=== PATIENT | female | born 1950 | race Two or more races ===

== ENCOUNTER 2018-04-25 10:54 | Inpatient (IN) | payer OTHER ==
[~2018-04-25] VITALS: Ht 152.4 cm; Wt 64.0 kg
[2018-04-25] MEDS ORDERED: PANTOTHENIC AC500 MG (11:08)
[2018-04-25] MEDS ORDERED: METFORMIN HCL500 M2 (11:08)
[2018-04-25] MEDS ORDERED: GRALISE300 MG (11:08)
[2018-04-25] MEDS ORDERED: MILLIPRED5 MG (11:09)
[2018-04-25] MEDS ORDERED: NAMENDA10 MG (11:10)
[2018-04-25] MEDS ORDERED: SERTRALINE HCL25 MG (11:10)
[2018-04-25] MEDS ORDERED: ATORVASTATIN CA10 MG (11:10)
[2018-04-25] MEDS ORDERED: PROBIOTIC1 EAC2 (11:11)
[2018-04-27] MEDS ORDERED: OXYC1TAB9 PO (17:01)
== END 2018-04-27 17:28 | disposition home or self-care (01) | DRG 494 ==
LOC: ER 10:54 → SEC-K 22:30 → O/R 04-26 11:39 → SURG 04-26 20:49
PROC: 0PSD04Z Reposition Left Humeral Head with Internal Fixation Device, Open Approach (ICD-10-PCS; principal; 2018-04-25)
DX: S42.255A Nondisplaced fracture of greater tuberosity of left humerus, initial encounter for closed fracture (principal); S42.295A Other nondisplaced fracture of upper end of left humerus, initial encounter for closed fracture; E11.9 Type 2 diabetes mellitus without complications; W18.39XA Other fall on same level, initial encounter; Y93.89 Activity, other specified; Y92.89 Other specified places as the place of occurrence of the external cause; Y99.8 Other external cause status

== ENCOUNTER 2018-04-28 00:44 | Inpatient (IN) | payer OTHER ==
[~2018-04-28] VITALS: Wt 5.0 kg
[~2018-04-28 00:44] MED LIST: ATORVASTATIN CA10 MG; GRALISE300 MG; METFORMIN HCL500 M2; MILLIPRED5 MG; NAMENDA10 MG; OXYC1TAB9 PO; PANTOTHENIC AC500 MG; PROBIOTIC1 EAC2; SERTRALINE HCL25 MG
[2018-08-29] MEDS ORDERED: XOPENEX0.63 MG/3 IH (15:55)
[2018-08-29] MEDS ORDERED: [UNRECOGNIZED DRUG - CODE] IV (15:55)
[2018-08-29] MEDS ORDERED: TYGACIL50 MG IV (15:55)
[2018-08-29] MEDS ORDERED: LOVENOX30 MG/0.3 SUBCUTANEO (15:56)
== END 2018-08-29 21:15 | disposition designated cancer center or children's hospital (05) | DRG 3 ==
LOC: ER 00:44 → ICU-2 13:18 → ICU 13:18
PROC: 5A1955Z Respiratory Ventilation, Greater than 96 Consecutive Hours (ICD-10-PCS; principal; 2018-04-28)
PROC: 0BH17EZ Insertion of Endotracheal Airway into Trachea, Via Natural or Artificial Opening (ICD-10-PCS; 2018-04-28)
PROC: 3E0F7GC Introduction of Other Therapeutic Substance into Respiratory Tract, Via Natural or Artificial Opening (ICD-10-PCS; 2018-04-28)
PROC: 4A033R1 Measurement of Arterial Saturation, Peripheral, Percutaneous Approach (ICD-10-PCS; 2018-04-28)
PROC: B246ZZZ Ultrasonography of Right and Left Heart (ICD-10-PCS; 2018-04-28)
PROC: 02HV33Z Insertion of Infusion Device into Superior Vena Cava, Percutaneous Approach (ICD-10-PCS; 2018-05-02)
PROC: BW41ZZZ Ultrasonography of Abdomen and Pelvis (ICD-10-PCS; 2018-05-13)
PROC: BW25ZZZ Computerized Tomography (CT Scan) of Chest, Abdomen and Pelvis (ICD-10-PCS; 2018-05-15)
PROC: 30233N1 Transfusion of Nonautologous Red Blood Cells into Peripheral Vein, Percutaneous Approach (ICD-10-PCS; 2018-05-23)
PROC: 0B110F4 Bypass Trachea to Cutaneous with Tracheostomy Device, Open Approach (ICD-10-PCS; 2018-06-04)
PROC: BW25Y0Z Computerized Tomography (CT Scan) of Chest, Abdomen and Pelvis using Other Contrast, Unenhanced and Enhanced (ICD-10-PCS; 2018-06-14)
PROC: BW28ZZZ Computerized Tomography (CT Scan) of Head (ICD-10-PCS; 2018-06-25)
PROC: 0W9B00Z Drainage of Left Pleural Cavity with Drainage Device, Open Approach (ICD-10-PCS; 2018-06-27)
PROC: BB24ZZZ Computerized Tomography (CT Scan) of Bilateral Lungs (ICD-10-PCS; 2018-07-02)
PROC: 0DH63UZ Insertion of Feeding Device into Stomach, Percutaneous Approach (ICD-10-PCS; 2018-07-08)
PROC: 0JB70ZZ Excision of Back Subcutaneous Tissue and Fascia, Open Approach (ICD-10-PCS; 2018-07-10)
PROC: 0JB70ZZ Excision of Back Subcutaneous Tissue and Fascia, Open Approach (ICD-10-PCS; 2018-07-15)
PROC: BB24ZZZ Computerized Tomography (CT Scan) of Bilateral Lungs (ICD-10-PCS; 2018-07-17)
PROC: 0W9B00Z Drainage of Left Pleural Cavity with Drainage Device, Open Approach (ICD-10-PCS; 2018-07-24)
PROC: 2W15X6Z Compression of Back using Pressure Dressing (ICD-10-PCS; 2018-07-29)
PROC: B54MZZZ Ultrasonography of Right Upper Extremity Veins (ICD-10-PCS; 2018-07-30)
PROC: 0JB70ZZ Excision of Back Subcutaneous Tissue and Fascia, Open Approach (ICD-10-PCS; 2018-08-02)
PROC: BB24ZZZ Computerized Tomography (CT Scan) of Bilateral Lungs (ICD-10-PCS; 2018-08-08)
PROC: 0W9B30Z Drainage of Left Pleural Cavity with Drainage Device, Percutaneous Approach (ICD-10-PCS; 2018-08-12)
PROC: BB24ZZZ Computerized Tomography (CT Scan) of Bilateral Lungs (ICD-10-PCS; 2018-08-15)
PROC: B34HZZZ Ultrasonography of Right Upper Extremity Arteries (ICD-10-PCS; 2018-08-24)
PROC: B54MZZZ Ultrasonography of Right Upper Extremity Veins (ICD-10-PCS; 2018-08-24)
DX: T81.44XA Sepsis following a procedure, initial encounter (principal); A41.9 Sepsis, unspecified organism; L89.153 Pressure ulcer of sacral region, stage 3; J95.821 Acute postprocedural respiratory failure; I50.33 Acute on chronic diastolic (congestive) heart failure; I63.59 Cerebral infarction due to unspecified occlusion or stenosis of other cerebral artery; R65.21 Severe sepsis with septic shock; B37.0 Candidal stomatitis; J91.8 Pleural effusion in other conditions classified elsewhere; A04.72 Enterocolitis due to Clostridium difficile, not specified as recurrent; J95.851 Ventilator associated pneumonia; K92.2 Gastrointestinal hemorrhage, unspecified; D62 Acute posthemorrhagic anemia; J93.83 Other pneumothorax; G93.1 Anoxic brain damage, not elsewhere classified; K57.32 Diverticulitis of large intestine without perforation or abscess without bleeding; E27.49 Other adrenocortical insufficiency; J47.1 Bronchiectasis with (acute) exacerbation; I82.A11 Acute embolism and thrombosis of right axillary vein; B37.49 Other urogenital candidiasis; I11.0 Hypertensive heart disease with heart failure; D64.89 Other specified anemias; Z16.24 Resistance to multiple antibiotics; E11.65 Type 2 diabetes mellitus with hyperglycemia; B96.1 Klebsiella pneumoniae [K. pneumoniae] as the cause of diseases classified elsewhere; Z78.1 Physical restraint status; I48.0 Paroxysmal atrial fibrillation; R13.19 Other dysphagia; B96.89 Other specified bacterial agents as the cause of diseases classified elsewhere; R29.701 NIHSS score 1